=== PATIENT | female | born 1965 | race Caucasian/White ===

== ENCOUNTER → 2020-04-11 | Outpatient (CLI) | payer BC ==
--- NOTE | 2020-04-11 18:06 | KCIC ---
Examination: XR CHEST 2V History: Reason: Pre-op evaluation. Comparison/Correlation: None Findings: Frontal and lateral views of chest were obtained. Heart size and pulmonary vessels are norm al. No infiltrate or effusion. No pneumothorax. Old left seventh rib fracture is present. Impression: No active disease. Electronically signed by: Jasmeet Jay MD (04/11/2020 6:04 PM) [id number]
== END ==
LOC: KCIC 15:54
PROVIDERS: ATTEND Family Medicine
DX: Z01.818 Encounter for other preprocedural examination (principal)
CPT/HCPCS: 71046

== ENCOUNTER → 2021-02-15 | Outpatient (CLI) | payer BC ==
--- NOTE | 2021-02-15 18:22 | KCIC ---
Bilateral digital screening mammogram (2-D): Reason for examination: Routine screening. Comparison is made to previous mammogram dated 08/23/2019. Interpretation was made with the benefit of CAD. Findings: Breast density: Category C. There is heterogeneously dense fibroglandular tissue, which may obscure s mall masses.. There are no dominant masses, suspicious calcifications or architectural distortions. Impression: No evidence of malignancy. Recommend routine screening. BI-RADS Category 1: Negative. This patient's information has been entered into a reminder system for the patient to be notified wit h the results of her examination and a target date for the next mammogram. Electronically signed by: Viviana Krause MD (02/15/2021 6:19 PM) [email or web address]
== END ==
LOC: KCIC MAMMO 09:50
PROVIDERS: ATTEND Nurse Practitioner
DX: Z12.31 Encounter for screening mammogram for malignant neoplasm of breast (principal)
CPT/HCPCS: 77067